=== PATIENT | female | born 1980 | race Caucasian/White ===

== ENCOUNTER 2022-05-25 04:40 | Emergency (ER) | payer OTHER ==
[2022-05-25 04:51] VITALS: BP 153/108; PULSE 101; RESP 18; TEMP 99; BMI 36.8
[2022-05-25] MEDS ORDERED: diazePAM 5 MG TABLET ONE (04:56)
[2022-05-25] MEDS ORDERED: diazePAM 5 MG TABLET PO ONE (04:56)
== END 2022-05-25 05:02 | disposition home or self-care (01) ==
LOC: FER 04:40
DX: R07.89 Other chest pain (principal)
CPT/HCPCS: 99283-25